=== PATIENT | female | born 2005 | race Caucasian/White ===

== ENCOUNTER 2024-08-17 21:33 | Emergency (ER) | payer OTHER, SELFPAY ==
[2024-08-17 21:41] VITALS: BP 157/76
[2024-08-17 22:04] LABS: % Basophils 0.8 % (0-2); % Immature Granulocytes 0.3 % (0-0.5); % Lymphocytes 17.5 % (20.5-51.1); % Monocytes 5.5 % (1.7-9.3); % Neutrophils 73.9 % (42.2-75.2); Absolute Basophils 0.1 10^3/uL (0-0.2); Absolute Eosinophils 0.2 10^3/uL (0-0.7); Absolute Lymphocytes 1.9 10^3/uL (1.2-3.4); Absolute Monocytes 0.6 10^3/uL (0.1-0.6); Absolute Neutrophils 8.1 10^3/uL (1.4-6.5); Hemoglobin 15.3 g/dL (12.0-16.0); Mean Corpuscular Hgb 29.4 pg (27.0-31.0); Mean Corpuscular Volume 86.5 fL (81.0-99.0); Mean Platelet Volume 10.6 fL (7.4-10.4); Nucleated Red Blood Cells % 0 %; Platelet Count 287 10^3/uL (130-400); Red Cell Dist. Width 12.6 % (11.5-14.5)
[2024-08-17 22:26] LABS: ALT (SGPT) 17 U/L (0-35); AST (SGOT) 20 U/L (14-36); Albumin 4.7 g/dl (3.5-5.0); Alkaline Phosphatase 59 U/L (38-126); Blood Urea Nitrogen 17 mg/dl (7-17); Calcium 9.4 mg/dl (8.4-10.2); Carbon Dioxide 25 mmol/L (22-30); Chloride 108 mmol/L (98-107); Glucose 91 mg/dl (70-99); Potassium 4.1 mmol/L (3.5-5.1); Sodium 140 mmol/L (135-145); Total Bilirubin 0.5 mg/dl (0.2-1.3); Total Protein 7.4 g/dl (6.3-8.2); eGFR > 60.00
[2024-08-17 22:28] LABS: Troponin I < 0.012 ng/ml
[2024-08-18 00:17] VITALS: BP 128/82; BMI 38.5
[2024-08-18 00:18] VITALS: BP 128/82
--- NOTE | 2024-08-18 00:50 | ED.GENMED ---
History of Present Illness
General
Chief Complaint: Chest Pain
Source: patient
Exam Limitations: none
Time Seen by Provider: 08/18/24 00:17
Nursing documentation reviewed up to this point in time: agreed with
History of Present Illness
History of Present Illness:
Note:
CHIEF COMPLAINT(S)
Chest pain
HISTORY OF PRESENT ILLNESS
The patient is a 19-year-old female with a pmh of prothrombin mutation presents to the ER today with chest pain. The pain has been intermittent throughout the past few months but has been constant for the past seven hours. The pain is localized
predominantly on the right side. She reports mild shortness of breath but denies any history of coughing, hemoptysis, or upper respiratory symptoms. The patient denies any recent injuries, heavy lifting, or exacerbation of pain with deep breathing.
There is no associated leg swelling or redness. Although the patient experiences some intermittent abdominal discomfort, primarily unrelated to meals, she denies any symptoms of gastroesophageal reflux.
The patient has a family history of pulmonary embolism; her mother has a history of multiple occurrences and is currently on warfarin as a result of familial clotting disorder. The patient herself has a history of a clotting disorder, though she is
not on anticoagulation. She has been advised by family to be cautious and to move around after extended periods of sitting, such as during long car rides. The patients recent travel includes frequent trips to [place], entailing a two-hour drive.
ADDITIONAL HISTORY OBTAINED FROM SOURCES OTHER THAN THE PATIENT
According to the family, the patient has tested positive for a clotting disorder as a child and has been advised to take precautions given the family history of pulmonary embolism.
FAMILY HISTORY
Mother with a history of pulmonary embolism and on warfarin therapy. Sister possibly had a heart murmur.
PLAN
- Order a CT scan of the chest to rule out pulmonary embolism due to the patients history of a clotting disorder and recent travel patterns.
General: Patient is well appearing and in no acute distress; non-toxic
Skin: Warm and dry, no rashes or lesions
Head: Normocephalic, atraumatic
Eyes: Sclera non-icteric. EOMs intact.
Cardiac: Regular rate and rhythm, no murmurs
Peripheral Vascular: No lower extremity swelling or edema
Pulm: Normal respiratory effort, no wheezes, rales, or rhonchi
Musculoskeletal: No tenderness to palpation of the external chest wall
Neuro: CN II-XII intact, no focal neurologic deficits.
Psychiatric: Appropriate mood and affect.
DIFFERENTIAL DIAGNOSIS
The Differential Diagnosis includes, in no particular order and is not limited to:
- Pulmonary embolism
- Costochondritis
- Musculoskeletal strain
- Gastroesophageal reflux disease (GERD)
- Pneumonia
- Myocarditis
- Pericarditis
- Anxiety-related chest pain
- Aortic dissection
- Peptic ulcer disease
CHART REVIEW
- reviewed ED chart from 11/02/22, patient seen for near syncopal episode discharged with unremarkable workup
MDM/DISPOSITION
The patient is a 19-year-old female with a pmh of prothrombin mutation presents to the ER today with chest pain. The pain has been intermittent throughout the past few months but has been constant for the past seven hours. The pain is localized
predominantly on the right side. On physical exam she is very well appearing. She has normal blood work and an undetectable troponin. Her CT scan did not show any evidence of pulmonary embolism. Did show possible bronchiolitis. Patient is not having
significant respiratory symptoms. Discussed following up with pcp with [facility] consultation. Discussed findings with patient. Did offer patient medication to manage her symptoms however patient states that she would rather take ibuprofen
at home. Pt stable for discharge.
Past History
Past History
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
ED Past Surgical History: None
Social History
Tobacco: Non-smoker
Alcohol: None
Personal: Single
Living: with roommate ([facility]
Review of Systems
Review of Systems
All Other Systems: ROS reviewed and negative except as documented in HPI and ROS
Phy Exam
Physical Exam
Physical Exam:
see hpi
Scores
Heart Score for Chest Pain Patients
STEMI patient?: No
History: Slightly or Non-Suspicious
ECG: Normal
Age: </= 45 years
Risk Factors: No Risk Factors
Troponin: </= Normal Limit
Heart Score for Chest Pain Patients: 0
Heart Score Risk: 2.5% MACE over next 6 weeks
Course
Orders/Labs/Results
Orders:
Orders
08/17/24 21:44
Electrocardiogram (*1) Urgent
Reason for Study: Chest Pain
08/17/24 21:45
EKG- Treatment ONCE
08/17/24 21:56
Complete Blood Count/With Diff Urgent
Comprehensive Metabolic Panel Urgent
Troponin I Urgent
08/18/24 01:01
CT Chest PE Study Urgent
Comment:
Reason For Exam: chest pain, sob, clotting disorder
Abnormal Lab Results
08/17/24
21:56
WBC 11.0 H 10^3/uL
(4.8-10.8)
MPV 10.6 H fL
(7.4-10.4)
Absolute Neuts (auto) 8.1 H 10^3/uL
(1.4-6.5)
Lymphocytes % 17.5 L %
(20.5-51.1)
Chloride 108 H mmol/L
(98-107)
08/17/24 21:56
08/17/24 21:56
Vital Signs
Initial and Last Documented VS:
Initial Vital Signs
Temp Pulse Resp BP Pulse Ox
99 F 94 20 157/76 98
08/17/24 21:41 08/17/24 21:41 08/17/24 21:41 08/17/24 21:41 08/17/24 21:41
Last Documented Vital Signs
Temp Pulse Resp BP Pulse Ox
98.4 F 77 15 121/67 98
08/18/24 00:18 08/18/24 01:29 08/18/24 01:29 08/18/24 02:15 08/18/24 02:45
*Pulse Oximetry
SaO2: 100
Oxygen Mode of Delivery: Room air
Patient hypoxic: no
*Critical Care Note
Total Time (30-74mins, 75-104mins- exclusive of procedures): Not Applicable
ED Attending Note
-
Portions of this chart may have been created with voice recognition software.� Occasional wrong word or��sound alike� substitutions may have occurred due to the inherent limitations of voice recognition software.
Discharge Plan
Departure
Patient Disposition: Home (Routine Discharge)
Date of Disposition: 08/18/24
Time of Disposition: 02:40
Patient with high blood pressure during this ER visit?: Yes
Condition: Good
Discharge Problem:
Chest pain
Instructions: Chest pain - Discharge instructions, BLOOD PRESSURE
Prescriptions:
No Action
No Current Medications
0
Referrals:
UNKNOWN - PT DOES,NOT KNOW [Family Provider]
Activity Restrictions/Additional Instructions:
Your CT of your chest shows no evidence of blood clot in the lungs.
Your blood work is unremarkable. Your ecg is normal.
Please follow up with your primary care provider in 1 week.
PLEASE RETURN EMERGENCY DEPARTMENT SHOULD YOU DEVELOP LIGHTHEADEDNESS, DIZZINESS, ACUTE WORSENING OF HER SYMPTOMS, SHORTNESS OF BREATH, FAINTING SPELLS, OR ANY OTHER SIGNS OR SYMPTOMS WORRISOME TO YOU.
Interventions
Interventions:
*Risk Screen - Suicide Last Done: 08/17/24 21:41
*General Assessment Last Done: 08/17/24 21:41
*Neglect/Abuse Screening Last Done: 08/17/24 21:41
*ED- Fall Risk Assessment Last Done: 08/18/24 00:20
*ED COVID-19 Vaccine History Last Done: 08/18/24 00:20
*Nursing Disposition Last Done: 08/18/24 02:55
ED- Cardiac Assessment Last Done: 08/18/24 00:25
Discharge Date and Time
Discharge Date/Time: 08/18/24 02:55
Print Language: BENGALI
[2024-08-18 01:00] VITALS: BP 116/68
[2024-08-18 02:15] VITALS: BP 121/67
== END 2024-08-18 02:55 | disposition home or self-care (01) ==
LOC: EMR 21:33
PROVIDERS: Emergency Medicine; EMERGENCY PHYSICIAN Student in an Organized Health Care Education/Training Program
DX: R07.9 Chest pain, unspecified (principal); D68.9 Coagulation defect, unspecified; R06.02 Shortness of breath
CPT/HCPCS: 99284; 71275; 80053; 84484; 85025; 93005; Q9967